=== PATIENT | male | born 1990 | race Two or more races ===

== ENCOUNTER 2020-03-07 17:13 | Emergency (ER) | payer MEDICAID ==
[~2020-03-07] VITALS: Ht 175.3 cm; Wt 82.4 kg
[2020-03-07 17:16] VITALS: BP 140/85
--- NOTE | 2020-03-07 17:25 | NUR ---
[employer]MENT OPERATOR: EKG DONE IN TRIAGE
[2020-03-07 18:02] LABS: BASOPHILS % (AUTO) 0 % (0-1); EOSINOPHILS % (AUTO) 2 % (1-7); LYMPHOCYTES % (AUTO) 26 % (22-44); MEAN CORPUSCULAR HEMOGLOBIN 28.8 pg (27.5-34.5); MEAN CORPUSCULAR HGB CONC 33.4 g/dL (33.2-36.2); MONOCYTES % (AUTO) 7 % (2-9); NEUTROPHILS % (AUTO) 65 % (42-75); PLATELET COUNT 271 x10^3/uL (130-400); RED CELL DISTRIBUTION WIDTH 13.7 % (9.4-14.8)
[2020-03-07 18:11] LABS: CALCIUM 9.2 mg/dL (8.5-10.1); CREATININE 0.99 mg/dL (0.7-1.3)
[2020-03-07 18:17] LABS: ANION GAP 4 mmol/L (5-15); CHLORIDE 104 mmol/L (98-107)
[2020-03-07 18:19] LABS: MD NO
--- NOTE | 2020-03-07 18:37 | NUR ---
ALL RESULTS ARE BACK AT THIS TIME. CHART UP FOR RECHECK.
--- NOTE | 2020-03-07 19:23 | NUR ---
PATIENT BACK IN ROOM, UPON FURTHER DISCUSSION WITH MD CASSIDY AND THIS RN, PATIENT STATES "THEY NEVER TOOK THAT CHEST XRAY ON ME". CXR RESULTS UNDER HIS NAME, RADIOLOGY CALLED, STATES "WE WILL CONTACT THE TECH THAT PUT THAT CHEST XRAY IN"
== END 2020-03-07 19:05 | disposition home or self-care (01) ==
LOC: ED 18:57
DX: F41.1 Generalized anxiety disorder (principal); R06.02 Shortness of breath; R06.00 Dyspnea, unspecified; R07.89 Other chest pain; Z87.891 Personal history of nicotine dependence
CPT/HCPCS: 36415; 71045; 80048; 82040; 85025; 93005; 99285